=== PATIENT | male | born 1960 | race Caucasian/White ===

== ENCOUNTER 2024-06-21 08:02 | Day surgery (SDC) | payer BC, SELFPAY ==
[2024-06-21] VITALS (13 sets, daily range): BP systolic 152–203; BP diastolic 64–89
[2024-06-21 08:34] LABS: Hemoglobin 11.3 g/dL (13.0-18.0); Mean Corp Hgb Conc. 35.3 g/dL (33.0-37.0); Mean Corpuscular Hgb 34.2 pg (27.0-31.0); Mean Platelet Volume 9.8 fL (7.4-10.4); Platelet Count 159 10^3/uL (130-400); White Blood Cell Count 7.8 10^3/uL (4.8-10.8)
[2024-06-21 08:44] LABS: INR 1.01; PT 13.8 Sec (11.4-14.6)
[2024-06-21 08:47] LABS: Blood Urea Nitrogen 10 mg/dl (9-20); Calcium 8.9 mg/dl (8.4-10.2); Carbon Dioxide 25 mmol/L (22-30); Chloride 98 mmol/L (98-107); Estimated Creatinine Clearance 118 ml/min; Glucose 116 mg/dl (70-99); Potassium 4.2 mmol/L (3.5-5.1); Sodium 132 mmol/L (135-145); eGFR > 60.00
--- NOTE | 2024-06-21 09:51 | W.SUR.PREOP ---
Pre-Operative Surgical Note
-
I have examined this patient prior to the performance of the scheduled procedure.
The patient's condition is unchanged from the time of the current History and
Physical and the patient is able to undergo the scheduled procedure.
--- NOTE | 2024-06-21 13:00 | W.SUR.POST ---
Surgical Immediate Post Op
Note
Pre Op Diagnosis: Severe Hypertension and BL severe renal artery stenosis
Post Op Diagnosis: Severe Hypertension and BL severe renal artery stenosis
Procedure Performed: Renal angiogram, BL renal balloon angioplasty and stent with atrium icast stent 6x22
Primary Surgeon: Domo Mcgraw MD
Secondary Surgeons: N/A
Anesthesia: MAC
Estimated Blood Loss: 2ml
Fluids: See anesthesia flow sheet
Drains/Shunts: N/A
Specimens/Cultures: None
Doppler/Duplex/Angio (Y/N): Y
Complications: None
Operative Findings: Successful endovascular intervention of BL renal artery stenosis
[2024-06-21] MEDS: SUBLIMAZE 50 MCG IV (14:05)
--- NOTE | 2024-06-21 14:13 | OR.RPT ---
Operative Report
Operative Report
PROCEDURE DATE: 06/21/2024
Preoperative diagnosis:
1. Severe refractory hypertension.
2. Severe bilateral renal artery stenosis.
Postoperative diagnosis: Same
Procedure:
1. Aortogram and bilateral renal artery angiography.
2. Right renal artery angioplasty and stent with Atrium iCast 6mm x 22mm covered stent.
3. Left renal artery angioplasty and stent with Atrium iCast 6mm x 22mm covered stent.
4. Right femoral angiogram.
5. Supervision and interpretation.
Surgeon: Mcgraw
Recreational Sports Director: None
Complications: None
Anesthesia: Local, sedation
Fluoroscopy:
23.1 min
1272 mGy
177.78 Gy.cm2
Indications for procedure:
Severe bilateral renal artery stenoses identified on prior angiography as well as CT angiogram. Refractory hypertension. Was referred therefore for renal artery angioplasty/stenting. Risk/benefit/alternatives all fully discussed with the patient.
He understood all wished to proceed.
Description of procedure:
Patient was identified, brought to the operating room. Placed on the table in the supine position. After the adequate administration of anesthesia, the patient was prepped and draped in the standard surgical fashion. A standard preoperative
timeout was undertaken and everybody was in agreement with the plan.
The right common femoral artery was accessed with a micropuncture kit under direct duplex ultrasound guidance. A 5 [place] sheath was then advanced over a 0.035 inch wire, and a guardado's hook catheter was advanced into the abdominal aorta. The
patient was now given 6000 units of intravenous heparin. (Was subsequently given an additional 1000 units of intravenous heparin).
Aortogram through the guardado Cook catheter with a hand-injection was performed. Identified the positioning of bilateral renal arteries. There appeared to be severe stenoses with heavy plaque at the origin of both renal arteries, and significant
eccentric calcified plaque in the aorta. At this point using a Vanche 3 catheter and a floppy angled hydrophilic Glidewire I was able to gain wire access across the right renal artery orificial stenosis and gain wire access into a distal renal
artery branch. Next I exchanged out for a 4 [place] glide catheter which I was able to advance through the renal artery ostium and into the distal renal artery branch. Angiogram confirmed I was in the true lumen. Now I exchanged for a Villa wire.
I then advanced a 6 [place] precurved Ansell sheath to the ostium of the right renal artery. However I could not advance the sheath into the artery. I therefore then used a 4 mm angioplasty balloon to predilate the origin. I then was able to
advance the sheath over the balloon as it was deflating. Now that I had good sheath access into the right renal artery, I then positioned an Atrium 6mm x 22mm iCast covered stent such that it encompassed the area of orificial stenosis extending
into the main renal artery slightly, but well short of the branching. In addition intentionally extended out into the aorta for a couple millimeters. I was happy with the positioning and then withdrew my sheath and then ballooned the stent into
place. Completion angiogram demonstrated an excellent result with excellent flow through the renal artery stent, no evidence of any dissection or other concerning findings. Excellent nephrogram was noted as well. There was good reflux from the
sheath injection back into the aorta suggesting patency of the ostium well.
At this point I withdrew my sheath and wire out of the right renal artery. I now used the Vanche catheter again and an angled floppy hydrophilic Glidewire and was able to gain wire access through the severe left renal artery ostial stenosis.
However despite multiple catheters, I could not get any catheter to track over this Glidewire (including a 4 [place] glide catheter, quick cross catheter, CXI catheter). I tried also positioning the Vanche catheter at the orifice of the left renal
artery and then exchanging my floppy Glidewire out for a stiff Glidewire. I carefully manipulated that wire into the distal renal branch. However I still could not advance any catheter. I now tried to exchanged out and see if I could advance a
balloon over that stiff Glidewire. However once I did this my wire and balloons were popped out of the renal artery cannulation and into the aorta. Therefore, at this point I used the same Vanche catheter but instead used a 0.014 inch steerable
[place] wire and was able to gain wire access into the distal renal artery branch. Now, I exchanged the catheter out for a 0.014 inch platform 3 mm balloon which I was able to advance through the stenosis. I then performed angioplasty to predilate
this lesion. Now I then exchanged for a 2.6 [place] CXI catheter and then exchanged for a 0.018 inch wire. Now, over the 0.018 inch wire I was able to advance the 4 [place] CXI catheter. And now I was able to exchanged for a Villa wire. However,
if still unable to advance the sheath over the Villa wire. Therefore I position the sheath at the orifice. I then advanced a 4 mm angioplasty balloon over the Villa wire. I was able to with some difficulty advancing through the stenosis. I then
performed balloon angioplasty of the stenosis to again predilated. Once I had done this, as I deflated the balloon I then advanced my sheath forward and was able to gain purchase into the left renal artery. Now that I had stable sheath access, I
was able to advance my Atrium iCast 6 mm x 22 mm covered stent. Again I positioned it in this renal artery similarly such that it had good purchase in the left renal artery but was short of the bifurcation of the renal artery, and flared a few
millimeters out into the aorta itself so as to certainly encompass the orificial plaque burden. Satisfied with its positioning, I now withdrew my sheath back and ballooned the stent into place. Completion angiogram demonstrated excellent result
with excellent filling of the left renal artery with an excellent left renal nephrogram. No evidence of dissection or any other concerning findings.
At this point, the wire and sheath were withdrawn out of the left renal artery. The sheath was withdrawn to the right external iliac artery. Right femoral angiogram demonstrated good puncture in the right common femoral artery but significant
burden of common femoral artery plaque. At this point the wires was withdrawn. The sheath was then withdrawn and manual pressure was applied. The patient was given protamine to reverse the heparin.
The patient tolerated procedure well.
[2024-06-21] MEDS: ROXICODONE 5 MG PO (14:48)
[2024-06-21] MEDS: NSS 1000 IV (15:10)
--- NOTE | 2024-06-21 15:29 | PTCARENOTE ---
dr aguilar out to see pt approx 1500. notified of pts bp continually hi . states pt runs that way and he has no new orders for meds.
[2024-06-21] MEDS: MORPHINE SULFATE 1 MG IV (17:09)
--- NOTE | 2024-06-21 17:14 | PTCARENOTE ---
pt states his back pain is 8/10 and if he has to lay here another 2 and a half hrs he will need more meds for his back pain . notified gabrielle rosenbaum np and orders for 1 mg mso4 given .
== END 2024-06-21 19:32 | disposition home or self-care (01) ==
LOC: CATH 08:02
PROVIDERS: ATTENDING PHYSICIAN Surgery Vascular Surgery; OTHER PHYSICIAN Internal Medicine Cardiovascular Disease; PRIMARYCARE PHYSICIAN Student in an Organized Health Care Education/Training Program
DX: I70.1 Atherosclerosis of renal artery (principal); I10 Essential (primary) hypertension; I25.2 Old myocardial infarction; K21.9 Gastro-esophageal reflux disease without esophagitis; E78.00 Pure hypercholesterolemia, unspecified; Z79.82 Long term (current) use of aspirin; Z79.899 Other long term (current) drug therapy; Z87.891 Personal history of nicotine dependence
CPT/HCPCS: 37236; 37237; 36252; 80048; 85027; 85610; 85730; C1725; C1769; C1874; C1887; C1894

== ENCOUNTER → 2024-07-19 12:41 | Outpatient (REF) | payer BC, SELFPAY | LOC: RAD 12:41 | PROVIDERS: ATTENDING PHYSICIAN Surgery Vascular Surgery; FAMILY PHYSICIAN Student in an Organized Health Care Education/Training Program | DX: I70.1 Atherosclerosis of renal artery (principal); I73.9 Peripheral vascular disease, unspecified | CPT/HCPCS: 93975 ==

== ENCOUNTER → 2025-01-26 07:12 | Outpatient (REF) | payer BC, SELFPAY | LOC: RAD 07:12 | PROVIDERS: ATTENDING PHYSICIAN Surgery Vascular Surgery; REFERRING PHYSICIAN Internal Medicine Cardiovascular Disease | DX: I70.1 Atherosclerosis of renal artery (principal); I73.9 Peripheral vascular disease, unspecified | CPT/HCPCS: 93922; 93925; 93975 ==

== ENCOUNTER → 2025-03-30 09:36 | Outpatient (REF) | payer BC, SELFPAY ==
[2025-03-30 12:12] LABS: Blood Urea Nitrogen 9 mg/dl (9-20); Calcium 9.4 mg/dl (8.4-10.2); Carbon Dioxide 26 mmol/L (22-30); Chloride 102 mmol/L (98-107); Glucose 106 mg/dl (70-99); Potassium 4.1 mmol/L (3.5-5.1); Sodium 136 mmol/L (135-145); eGFR > 60.00
== END ==
LOC: REG 09:36
PROVIDERS: ATTENDING PHYSICIAN Surgery Vascular Surgery
DX: I70.1 Atherosclerosis of renal artery (principal)
CPT/HCPCS: 36415; 80048